=== PATIENT | female | born 1940 | race Caucasian/White ===

== ENCOUNTER 2019-01-13 08:47 | Day surgery (SDC) ==
[2019-01-07 08:05] LABS: URINE SOURCE CLEAN CATCH
[2019-01-07 08:31] LABS: BASO# 0.03 X1000 (0.0-0.2); BASO% 0.4 % (0.0-0.8); BILIRUBIN URINE NEGATIVE (NEGATIVE); BLOOD URINE NEGATIVE (NEGATIVE); COLOR YELLOW; EOS# 0.09 X1000 (0.0-0.7); EOS% 1.2 % (0.0-10.0); GLUCOSE URINE NEGATIVE (NEGATIVE); HEMATOCRIT 38.6 % (37.0-47.0); HEMOGLOBIN 12.5 g/dL (12.0-16.0); IMM GRAN# 0.02 X1000 (0.0-0.04); IMM GRAN% 0.3 % (0.0-0.5); KETONE URINE NEGATIVE (NEGATIVE); LEUKOCYTES URINE NEGATIVE (NEGATIVE); LYMPH% 30.7 % (20.5-51.1); MCH 29.9 PG (27-31); MCHC 32.4 g/dL (33-37); MCV 92.3 FL (81-99); MONO# 0.65 X1000 (0.11-0.59); MONO% 8.7 % (1.7-9.3); MPV 10.9 FL (7.4-10.4); NEUT# 4.39 X1000 (1.4-6.5); NEUT% 58.7 % (42.2-75.2); NITRITE URINE NEGATIVE (NEGATIVE); PH URINE 6.5; PLT 311 X1000 (130-400); PROTEIN URINE NEGATIVE (NEGATIVE); RBC 4.18 XMIL (4.2-5.4); RDW 12.3 % (11.5-14.5); SP GRAVITY URINE 1.024; TURBIDITY URINE CLEAR (CLEAR); UROBILINOGEN URINE NORMAL (NORMAL); WBC 7.48 X1000 (4.8-10.8)
[2019-01-07 08:32] LABS: UR EPITHELIAL CELLS <10 /HPF (<10); URINE BACTERIA NEGATIVE /HPF; URINE RBC <10 /HPF (<10); URINE WBC <10 /HPF (<10)
[2019-01-07 08:37] LABS: HEMOGLOBIN A1C 5.6 % (4.8-6.0); INR 0.98
[2019-01-07 08:38] LABS: PTT 34.8 Seconds (22.3-41.8)
[2019-01-07 08:45] LABS: CALCIUM 9.3 mg/dL (8.8-10.2); CREATININE 1.2 mg/dL (0.5-0.9); POTASSIUM 3.8 mmol/L (3.5-5.1)
--- NOTE | 2019-01-07 08:48 | EKG Report ---
Test Performed on : 01/07/2019 07:56:59 AM Test Reason : PAT Blood Pressure : / mmHG Vent. Rate : 064 BPM Atrial Rate : 064 BPM P-R Int : 154 ms QRS Dur : 086 ms QT Int : 416 ms P-R-T Axes : 069 -13 036 degrees QTc Int : 429 ms Sinus rhythm. with premature atrial complexes. Otherwise normal ECG When compared with ECG of 18-JAN-2012 20:06, premature atrial complexes. are now present ST now depressed in Inferior leads Non-specific change in ST segment in Lateral leads T wave amplitude has decreased in Inferior leads T wave inversion no longer evident in Lateral leads Confirmed by Valerie BRYANT, Steven Christina ([id number]) on 01/08/2019 7:42:31 PM
[2019-01-13] MEDS ORDERED: ZOFRAN ONE (09:07)
[2019-01-13] MEDS ORDERED: DIPRIVAN 1% ONE (09:07)
[2019-01-13] MEDS ORDERED: XYLOCAINE-MPF 2% ONE (09:07)
[2019-01-13] MEDS ORDERED: FENTANYL ONE (09:07)
[2019-01-13] MEDS ORDERED: PEPCID ONE (09:33)
[2019-01-13] MEDS ORDERED: COLACE ONE (09:33)
[2019-01-13] MEDS ORDERED: LYRICA ONE (09:33)
[2019-01-13] MEDS ORDERED: LR 1,000 ML ONE (09:33)
[2019-01-13] MEDS ORDERED: REGLAN ONE (09:33)
[2019-01-13] MEDS ORDERED: KEFZOL 1 GM/D5W 2 GM/100 ML IVPB ONE (09:33)
[2019-01-13] MEDS ORDERED: DIPRIVAN 1% 500 MG/50 ML BOTTLE ONE (09:48)
[2019-01-13] MEDS ORDERED: VANCOMYCIN ONE (10:06)
[2019-01-13] MEDS ORDERED: SODIUM CHLORIDE 0.9% ONE (10:06)
[2019-01-13] MEDS ORDERED: DURAMORPH ONE (10:06)
[2019-01-13] MEDS ORDERED: MARCAINE 0.25% PF ONE (10:06)
[2019-01-13] MEDS ORDERED: CYKLOKAPRON 1,000 MG/NS 1,000 MG/100 ML IVPB ONE ×2 (10:06→10:07)
[2019-01-13] MEDS ORDERED: TORADOL ONE (10:06)
[2019-01-13] MEDS ORDERED: EXPAREL 1.3% ONE (10:06)
[2019-01-13] MEDS ORDERED: DECADRON ONE (11:10)
[2019-01-13] MEDS ORDERED: OFIRMEV 1000 MG/ISOTONIC SOLN 1,000 MG/100 ML BOTTLE ONE (11:10)
[2019-01-13 11:21] LABS: URINE SOURCE CATH
[2019-01-13 11:28] LABS: BILIRUBIN URINE NEGATIVE (NEGATIVE); BLOOD URINE NEGATIVE (NEGATIVE); COLOR YELLOW; GLUCOSE URINE NEGATIVE (NEGATIVE); KETONE URINE NEGATIVE (NEGATIVE); LEUKOCYTES URINE NEGATIVE (NEGATIVE); NITRITE URINE NEGATIVE (NEGATIVE); PH URINE 7.5; PROTEIN URINE NEGATIVE (NEGATIVE); SP GRAVITY URINE 1.019; TURBIDITY URINE CLEAR (CLEAR); UROBILINOGEN URINE NORMAL (NORMAL)
[2019-01-13 11:30] LABS: UR EPITHELIAL CELLS <10 /HPF (<10); URINE BACTERIA NEGATIVE /HPF; URINE RBC <10 /HPF (<10); URINE WBC <10 /HPF (<10)
[2019-01-13] MEDS ORDERED: ROBINUL ONE (11:40)
[2019-01-13] MEDS ORDERED: NS 1,000 ML ONE (12:25)
--- NOTE | 2019-01-13 12:44 | OPERATIVE NOTE ---
PROCEDURE DATE: 01/13/2019 PREOPERATIVE DIAGNOSIS: Degenerative joint disease, right knee. POSTOPERATIVE DIAGNOSIS: Degenerative joint disease, right knee. OPERATIVE PROCEDURE: Right total knee replacement. SURGEON: Roque Parra M.D. ENDLESS BED DRUM SANDER: CHELLE Steele. Mr. Ivory was necessary for proper retraction and manipulation of the case. ANESTHESIA: Spinal. COMPLICATIONS: None. PROCEDURE IN DETAIL: A 78-year-old female presents for a right total knee replacement. Risks, benefits, and no guarantees were discussed, and she is willing to proceed. She was taken to the operating room, and satisfactory anesthesia obtained. The right leg was prepped and draped in the usual sterile fashion. A time-out was taken to confirm operative site, procedure, and patient. After prep and drape, the leg was wrapped with an Esmarch, and tourniquet inflated to 300 mmHg. A midline incision was made over the front of the knee, followed by a quad tendon sparing arthrotomy. The patella was everted and resurfaced with freehand technique and subluxed laterally. The knee was flexed, intramedullary hole made in the distal femur, and the distal femoral cutting block secured in 5 degrees of valgus. Then, 10 mm was taken off the distal femur, and the distal femur sized to a DePuy Klusterune size 5 femoral implant. The 4-in-1 block was secured, and the anterior, posterior, and chamfer cuts sequentially made. Care was taken to preserve collateral ligaments and PCL. Any osteophytes were debrided from the femur. The knee was flexed, and a PCL retractor placed behind the tibia to protect the PCL and neurovascular bundle. The tibial cutting block was secured, and the tibial resection made. Flexion and extension gaps were checked and noted to be equal with a 6 mm spacer. The tibia was sized to a size 5 tibial tray. A trial reduction was performed with a 5 tibial tray, a 5 standard width cruciate retaining femoral component, and a 6 mm thick polyethylene bearing with good range of motion and stability. The patella was sized to a 35 medialized dome patella. The drill holes were placed for the patella and femoral implants, and the trial components removed. The bony surfaces were thoroughly irrigated with pulsatile lavage. Cement was mixed with a gram of vancomycin, and a DePuy size 5 rotating platform tibial base plate, a size 5 right cruciate- retaining femoral component, standard width, and a 35 medialized dome patella cemented onto the knee. Excess cement was removed with a Marianna elevator. While the cement cured, the joint capsule was injected with Exparel for pain management, and a Hemovac drain placed. The arthrotomy was then copiously irrigated with irrigant. After curing the cement, a size 5 cruciate retaining polyethylene bearing with a 6 mm thickness was inserted into the tibial tray, and the knee reduced. Final range of motion was 0 to 130 degrees with midline patellar tracking. The wound was copiously irrigated with irrigant, and closed over the drain with #1 Vicryl in the arthrotomy, 2-0 Vicryl in the subcu, and skin sj on the skin edges. Sterile dressings completed the closure, and the patient was recovered from anesthesia, and transferred to the recovery room in stable condition. No intraoperative complications were noted. Instrument count and sponge count were correct at the time of closure. cc: Jacinto Parra MD
--- NOTE | 2019-01-13 13:02 | Diag Imaging Result Doc PS360 ---
KNEE 1-2 VIEWS-RIGHT - 01/13/2019 INDICATION: TKA TECHNIQUE: Two views COMPARISON: None FINDINGS: There has been right total knee arthroplasty. There is a focal defect at the anterior distal femur where the bone contacts the femoral component. The tibial component is in normal position in the adjacent bone appears normal. IMPRESSION: Focal bony erosion or defect at the anterior distal femur. It is unclear if this is surgical, or was a pre-existing erosion or bony mass. There is poor contact of the anterior portion of the prosthesis with the femur as a result of this bone defect. Electronically signed by Ulises Nathan 01/13/2019 12:59 PM
[2019-01-13] MEDS ORDERED: OXY IR PO PRN ×2 (13:30)
[2019-01-13] MEDS ORDERED: ZOFRAN IV PRN (13:30)
[2019-01-13] MEDS ORDERED: MORPHINE IV PRN ×3 (13:30)
[2019-01-13] MEDS: NS 1,000 ML IV SCH (14:00)
[2019-01-13] MEDS ORDERED: BENADRYL PO PRN (15:24)
--- NOTE | 2019-01-13 16:52 | ORTHOPAEDICS PROGRESS NOTE ---
DATE: 01/13/2019 Ms Turner is seen status post total knee replacement. At the present time, she is afebrile with stable vital signs. She is comfortable. Her bandage is clean and dry. She is motor and sensory intact. I will plan on mobilizing her and transferring her home when she is successfully mobilizing with therapy. cc: Jacinto Parra MD
[2019-01-13] MEDS: ULTRAM PO SCH (17:58)
[2019-01-13] MEDS: TYLENOL PO SCH (17:58)
[2019-01-13] MEDS: KEFZOL 2 GM/D5W 2 GM/50 ML IVPB IV SCH (17:59)
[2019-01-13] MEDS ORDERED: LIPITOR PO SCH (21:00)
[2019-01-13] MEDS ORDERED: NORVASC PO SCH (21:00)
[2019-01-13] MEDS: COREG PO SCH (21:21)
[2019-01-13] MEDS: PERIDEX MT SCH (21:21)
[2019-01-13] MEDS: COLACE PO SCH (21:21)
[2019-01-14] MEDS: KEFZOL 2 GM/D5W 2 GM/50 ML IVPB IV SCH ×2 (00:47→03:35)
[2019-01-14] MEDS: TYLENOL PO SCH ×3 (00:47→11:56)
[2019-01-14] MEDS: ULTRAM PO SCH ×3 (00:48→11:56)
[2019-01-14] MEDS: NS 1,000 ML IV SCH (00:52)
[2019-01-14 06:57] LABS: HEMATOCRIT 33.2 % (37.0-47.0); HEMOGLOBIN 11.2 g/dL (12.0-16.0)
[2019-01-14] MEDS ORDERED: SYNTHROID PO SCH (07:00)
[2019-01-14 07:19] LABS: POTASSIUM 3.7 mmol/L (3.5-5.1)
[2019-01-14] MEDS ORDERED: PEPCID PO SCH (09:00)
[2019-01-14] MEDS ORDERED: CENTRUM SILVER PO SCH (09:00)
[2019-01-14] MEDS ORDERED: ASPIRIN PO SCH (09:00)
[2019-01-14] MEDS ORDERED: PATIENT'S OWN MED PO SCH (09:00)
[2019-01-14] MEDS ORDERED: DYAZIDE PO SCH (09:00)
[2019-01-14] MEDS ORDERED: SINGULAIR PO SCH (09:00)
[2019-01-14] MEDS ORDERED: PRINIVIL PO SCH (09:00)
[2019-01-14] MEDS ORDERED: CALTRATE 600 PO SCH (09:00)
[2019-01-14] MEDS: PERIDEX MT SCH (09:12)
[2019-01-14] MEDS: COLACE PO SCH (09:13)
[2019-01-14] MEDS: COREG PO SCH (09:14)
[2019-01-14 12:26] VITALS: BP 122/60
[2019-01-14] MEDS ORDERED: COLACE PO SCH (21:00)
[2019-01-15] MEDS ORDERED: CELEBREX PO SCH (09:00)
== END 2019-01-14 15:38 | disposition home or self-care (01) ==
LOC: OR 08:47 → 4N 08:47 → OR 01-14 15:38
PROVIDERS: ATTEND Orthopaedic Surgery Adult Reconstructive Orthopaedic Surgery